=== PATIENT | female | born 1945 | race Caucasian/White ===

== ENCOUNTER 2021-07-20 18:12 | Emergency (ER) | payer MEDICARE ==
[2021-07-20] MEDS ORDERED: Tetracaine 0.5% PF 4 ML BOT ONE ×2 (18:40→18:44)
[2021-07-20] MEDS ORDERED: Fluorescein Opthalmic Strip ONE (18:44)
== END 2021-07-20 19:10 | disposition home or self-care (01) ==
LOC: BURERS 18:12
DX: S05.01XA Injury of conjunctiva and corneal abrasion without foreign body, right eye, initial encounter (principal); I10 Essential (primary) hypertension; X58.XXXA Exposure to other specified factors, initial encounter; Y93.H2 Activity, gardening and landscaping; Z79.899 Other long term (current) drug therapy
CPT/HCPCS: 99282